=== PATIENT | female | born 1960 | race Caucasian/White ===

== ENCOUNTER → 2018-01-21 | Outpatient (CLI) | payer OTHER ==
--- NOTE | 2018-01-21 23:38 | MR ---
EXAMINATION TYPE: MR knee LT wo con DATE OF EXAM: 01/21/2018 COMPARISON: None HISTORY: Other symptoms and signs involving the musculoskeletal system, left knee pain TECHNIQUE: Multiplanar, multisequence imaging of the knee is performed without IV contrast. FINDINGS: There is patchy increased signal throughout the inferior aspect of the lateral femoral condyle. The c ollateral ligaments appear intact. There is irregular increased signal in the posterior horn lateral meniscus extending to the superior and inferior surface. There is increased signal within the substan ce of the anterior horn lateral meniscus. There is small oblique tear posterior horn medial meniscus extending to the inferior surface. The anterior and posterior cruciate ligaments are intact. There's mild knee joint effusion. I see no fracture line. IMPRESSION: Large bone bruise involving the lateral femoral condyle. Complex tear of the posterior horn lateral meniscus. Degenerative signal change within the anterior h orn lateral meniscus. Oblique tear posterior horn medial meniscus. Joint effusion.
== END | disposition home or self-care (01) ==
LOC: RADMRIMAIN 15:17
PROVIDERS: ATTEND Family Medicine
DX: S83.272A Complex tear of lateral meniscus, current injury, left knee, initial encounter (principal); S83.242A Other tear of medial meniscus, current injury, left knee, initial encounter; S70.12XA Contusion of left thigh, initial encounter; M25.462 Effusion, left knee